=== PATIENT | male | born 1985 | race African-American/Black ===

== ENCOUNTER 2016-09-26 22:49 | Emergency (ER) | payer OTHER ==
[~2016-09-26] VITALS: Ht 185.4 cm; Wt 75.3 kg
--- NOTE | ~2016-09-26 | CR108 ---
[facility] A Service of [facility] RADIOLOGY TEXT RESULTS PATIENT: ASHLEY NINO LOCATION: [facility] : [id number] UNIT #: [id number] AGE: [address]: KHRIS PAINTER APRN SEX: M ORDER DR: [id number] [facility] [address] [place], [place] [address] [id number] E MR#: [id number] Acc #: [id number] NAME: ASHLEY NINO : 1985 SEX: M STUDY DATE/TIME: 09/26/2016 2313 UNIT: [facility] ROOM: STUDY DESCRIPTION: CR Finger 2 View 2nd Lt Attending Physician: Khris Painter Aprn Ordering Physician: Ed Mao Bartholomew M.D. Primary Care Physician: No Primary Care Physician MEDICAL IMAGING REPORT This report is preliminary unless electronic signature is present EXAM Left index finger, 09/26 at 2313 hours. INDICATION Laceration to the tip of the finger with pain after slamming in car door tonight. FINDINGS Three views of the left index finger were obtained. There is soft tissue injury over the distal end of the finger. No fracture or radiopaque foreign body identified. IMPRESSION Soft tissue injury. Otherwise negative. Dictated by... Marcin Salcido Jr., M.D. THIS IS AN ELECTRONICALLY VERIFIED REPORT Marcin Salcido Jr., M.D. at 09/28/2016 5:51 AM JULI/ronan TD: 09/27/2016 09:52 JOB #: [id number] MEDICAL IMAGING REPORT Page 1 of 1 COPY
== END 2016-09-27 02:04 | disposition home or self-care (01) ==
LOC: CED 22:49
DX: S67.191A Crushing injury of left index finger, initial encounter (principal); S61.211A Laceration without foreign body of left index finger without damage to nail, initial encounter; F17.290 Nicotine dependence, other tobacco product, uncomplicated; Z23 Encounter for immunization; W23.0XXA Caught, crushed, jammed, or pinched between moving objects, initial encounter; Y92.69 Other specified industrial and construction area as the place of occurrence of the external cause
CPT/HCPCS: 12001; 73140; 90471; 90715; 99283

== ENCOUNTER 2016-10-05 14:48 | Emergency (ER) | payer OTHER ==
[~2016-10-05] VITALS: Ht 185.4 cm; Wt 77.1 kg
== END 2016-10-05 15:04 | disposition home or self-care (01) ==
LOC: CFTX 14:48 → CED 14:48 → CFTX 15:04
DX: S61.211D Laceration without foreign body of left index finger without damage to nail, subsequent encounter (principal); W23.0XXD Caught, crushed, jammed, or pinched between moving objects, subsequent encounter
CPT/HCPCS: 99281